=== PATIENT | male | born 2000 | race Caucasian/White ===

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

== ENCOUNTER 2020-08-21 00:14 | Inpatient (IN) | payer BC, OTHER ==
[~2020-08-21] VITALS: Ht 182.9 cm; Wt 70.0 kg
[2020-08-21] MEDS ORDERED: LIDOcaine 1% W/epiNEPHrine 1:100,000 20ml vial SQ ONE (00:35)
[2020-08-21] MEDS ORDERED: fentaNYL/PF 50MCG/1 ML 2ML syringe IV ONE (00:35)
[2020-08-21 00:53] LABS: BASOPHILS % (AUTO) 0.4 % (0-1); EOSINOPHILS # (AUTO) 0.2 X10'3 (0-0.9); EOSINOPHILS % (AUTO) 2.9 % (0-6); HEMATOCRIT 45.2 % (42.0-52.0); HEMOGLOBIN 15.3 g/dl (14.0-17.9); LYMPHOCYTES # (AUTO) 2.7 X10'3 (1.1-4.8); LYMPHOCYTES % (AUTO) 39.1 % (21-51); MEAN CORPUSCULAR HEMOGLOBIN 28.3 PG (27.0-31.0); MEAN CORPUSCULAR HGB CONC 33.8 g/dL (33.0-36.5); MEAN CORPUSCULAR VOLUME 83.7 FL (78-98); MEAN PLATELET VOLUME 8.3 FL (7.4-10.4); MONOCYTES # (AUTO) 0.5 X10'3 (0-0.9); MONOCYTES % (AUTO) 7.8 % (2-12); NEUTROPHILS # (AUTO) 3.5 X10'3 (1.8-7.7); NEUTROPHILS % (AUTO) 49.8 % (42-75); PLATELET COUNT 186 X10'3 (140-440); RED CELL DISTRIBUTION WIDTH 13.3 % (11.5-14.5)
[2020-08-21 01:07] LABS: ALANINE AMINOTRANSFERASE 31 U/L (12-78); ALBUMIN 4.8 G/DL (3.4-5.0); ALBUMIN/GLOBULIN RATIO 1.5 (1.1-1.5); ALKALINE PHOSPHATASE 81 IU/L (20-180); ANION GAP 8 (8-16); ASPARTATE AMINO TRANSFERASE 39 U/L (10-37); BILIRUBIN,TOTAL 2.1 MG/DL (0.1-1.0); BLOOD UREA NITROGEN 10 MG/DL (7-18); BUN/CREATININE RATIO 9.9 (5.4-32.0); CALCIUM 9.2 MG/DL (8.5-10.1); CHLORIDE 105 MMOL/L (99-107); CREATININE 1.01 MG/DL (0.60-1.10); POTASSIUM 3.6 MMOL/L (3.5-5.1); SODIUM 141 MMOL/L (135-145); TOTAL CARBON DIOXIDE 28.4 MMOL/L (24-32); TOTAL PROTEIN 8.1 G/DL (6.4-8.2); eGFR > 90 ML/MIN
[2020-08-21 01:08] LABS: GLUCOSE 124 MG/DL (70-104)
[2020-08-21] MEDS ORDERED: magnesium hydroxide 30ml (MOM) UD suspension PO PRN (02:05)
[2020-08-21] MEDS ORDERED: mag hydrox/Alum hydrox/simeth 30ml oral suspension PO PRN (02:05)
[2020-08-21] MEDS ORDERED: acetaminophen 325mg tablet PO PRN (02:05)
[2020-08-21] MEDS ORDERED: potassium Cl 20 mEq SR tablet PO PRN ×2 (02:05)
[2020-08-21] MEDS ORDERED: ondansetron/PF 4mg/2ml inj IV PRN (02:05)
[2020-08-21] MEDS ORDERED: potassium CL 10mEq/100ml bag 100 ML IV PRN ×2 (02:05)
[2020-08-21] MEDS ORDERED: magnesium 2GM in 50ml NS 50 ML IV PRN (02:05)
[2020-08-21] MEDS ORDERED: magnesium Cl slow-release 64mg tablet PO PRN (02:05)
[2020-08-21] MEDS ORDERED: magnesium 4gm in 100ml NS 100 ML IV PRN (02:05)
--- NOTE | 2020-08-21 02:07 | NUR ---
Pt to be admitted. Awaiting hospitalist.
[2020-08-21] MEDS ORDERED: NO HOME MEDS (02:19)
[2020-08-21] MEDS ORDERED: morphine 4 MG/ML inj SYRINge IV ONE (02:30)
[2020-08-21] MEDS ORDERED: ondansetron/PF 4mg/2ml inj IV ONE (02:30)
[2020-08-21] MEDS: HYDROcodone/acetaminophen 5mg/325mg tablet PO PRN ×2 (02:40→06:57)
--- NOTE | 2020-08-21 03:28 | NUR ---
Patient in room ED 1. I have received report from Demetrice XAVIER and had the opportunity to ask questions and assume patient care.
--- NOTE | 2020-08-21 04:00 | NUR ---
PAGER ID: [phone] MESSAGE: Sunni [phone]- [facility] pt. Edwarhemal Riggs 19 y/o with Pneumo. We have suction set at 20mmHg continuous. No orders for settings provided, please advise. Thank you.
[2020-08-21 04:10] VITALS: BP 133/84
--- NOTE | 2020-08-21 06:41 | NUR ---
Problems reprioritized. Patient report given, questions answered & plan of care reviewed with Yaneli XAVIER.
--- NOTE | 2020-08-21 06:51 | NUR ---
Patient in room [facility]. I have received report from DUC Moeller and had the opportunity to ask questions and assume patient care.
[2020-08-21 07:00] VITALS: BP 124/66
[2020-08-21] MEDS: K and/or MAG REPLACEMENT MC SCH ×2 (08:00→19:21)
[2020-08-21 11:00] VITALS: BP 115/74
[2020-08-21] MEDS ORDERED: ketorolac trometh. 30mg/ml inj. IM PRN (12:25)
[2020-08-21] MEDS: ketorolac trometh. 30mg/ml inj. IV PRN ×2 (13:26→21:31)
--- NOTE | 2020-08-21 15:40 | NUR ---
Pt transported to CT scan and back with primary RN and transportation inspector, via wheelchair. Pt tolerated transportation well.
--- NOTE | 2020-08-21 16:15 | NUR ---
Pt transported to and from xray in ED via wheelchair by Primary RN.
[2020-08-21 18:00] VITALS: BP 118/70
--- NOTE | 2020-08-21 18:18 | NUR ---
Problems reprioritized. Patient report given, questions answered & plan of care reviewed with DUC Carney.
--- NOTE | 2020-08-21 18:57 | NUR ---
Patient in room [facility]. I have received report from ALEC XAVIER and had the opportunity to ask questions and assume patient care.
[2020-08-22 00:16] VITALS: BP 110/70
[2020-08-22 05:03] LABS: BASOPHILS % (AUTO) 0.2 % (0-1); EOSINOPHILS # (AUTO) 0.2 X10'3 (0-0.9); EOSINOPHILS % (AUTO) 3.3 % (0-6); HEMOGLOBIN 14.7 g/dl (14.0-17.9); LYMPHOCYTES # (AUTO) 1.9 X10'3 (1.1-4.8); LYMPHOCYTES % (AUTO) 38.1 % (21-51); MEAN CORPUSCULAR HEMOGLOBIN 28.2 PG (27.0-31.0); MEAN CORPUSCULAR HGB CONC 33.5 g/dL (33.0-36.5); MEAN CORPUSCULAR VOLUME 84.1 FL (78-98); MEAN PLATELET VOLUME 8.1 FL (7.4-10.4); MONOCYTES # (AUTO) 0.5 X10'3 (0-0.9); MONOCYTES % (AUTO) 9.4 % (2-12); NEUTROPHILS # (AUTO) 2.4 X10'3 (1.8-7.7); PLATELET COUNT 143 X10'3 (140-440); RED BLOOD COUNT 5.23 X10'6 (4.70-6.10); RED CELL DISTRIBUTION WIDTH 13.4 % (11.5-14.5); WHITE BLOOD COUNT 4.9 X10'3 (4.5-11.0)
[2020-08-22 05:13] LABS: ALANINE AMINOTRANSFERASE 27 U/L (12-78); ALBUMIN 4.1 G/DL (3.4-5.0); ALBUMIN/GLOBULIN RATIO 1.4 (1.1-1.5); ALKALINE PHOSPHATASE 69 IU/L (20-180); ANION GAP 6 (8-16); ASPARTATE AMINO TRANSFERASE 16 U/L (10-37); BILIRUBIN,TOTAL 2.7 MG/DL (0.1-1.0); BLOOD UREA NITROGEN 12 MG/DL (7-18); BUN/CREATININE RATIO 13.3 (5.4-32.0); CALCIUM 10.1 MG/DL (8.5-10.1); CHLORIDE 107 MMOL/L (99-107); GLUCOSE 95 MG/DL (70-104); MAGNESIUM 2.2 MG/DL (1.5-2.4); POTASSIUM 4.1 MMOL/L (3.5-5.1); SODIUM 142 MMOL/L (135-145); TOTAL CARBON DIOXIDE 28.8 MMOL/L (24-32); TOTAL PROTEIN 7.1 G/DL (6.4-8.2); eGFR > 90 ML/MIN
--- NOTE | 2020-08-22 06:05 | NUR ---
Problems reprioritized. Patient report given, questions answered & plan of care reviewed with HEBERT XAVIER.
[2020-08-22 07:00] VITALS: BP 104/69
[2020-08-22] MEDS: ketorolac trometh. 30mg/ml inj. IV PRN ×2 (07:32→18:55)
[2020-08-22] MEDS: K and/or MAG REPLACEMENT MC SCH ×2 (08:00→18:50)
[2020-08-22 12:00] VITALS: BP 108/67
[2020-08-22 19:00] VITALS: BP 106/64
[2020-08-22 23:30] VITALS: BP 113/75
[2020-08-23] MEDS: HYDROcodone/acetaminophen 5mg/325mg tablet PO PRN (02:29)
[2020-08-23 07:00] VITALS: BP 105/62
[2020-08-23] MEDS: K and/or MAG REPLACEMENT MC SCH ×2 (08:00→21:04)
[2020-08-23] MEDS: ketorolac trometh. 30mg/ml inj. IV PRN ×2 (08:01→19:20)
--- NOTE | 2020-08-23 14:20 | NUR ---
No labs ordered today
--- NOTE | 2020-08-23 18:50 | NUR ---
Patient in room [facility] 340B. I have received report from DUC Negro and had the opportunity to ask questions and assume patient care.
[2020-08-23 20:00] VITALS: BP 119/73
[2020-08-23 23:00] VITALS: BP 118/67
[2020-08-24] VITALS (23 sets, daily range): BP systolic 100–156; BP diastolic 55–83
[2020-08-24] MEDS: normal saline 1000ml 1,000 ML IV SCH ×2 (04:45→16:30)
[2020-08-24] MEDS: ketorolac trometh. 30mg/ml inj. IV PRN (05:24)
--- NOTE | 2020-08-24 06:24 | NUR ---
Problems reprioritized. Patient report given, questions answered & plan of care reviewed with DUC Tee.
--- NOTE | 2020-08-24 06:25 | NUR ---
Patient in room [facility]. I have received report from Katerin XAVIER and had the opportunity to ask questions and assume patient care.
[2020-08-24 09:50] LABS: BASOPHILS % (AUTO) 0.4 % (0-1); EOSINOPHILS # (AUTO) 0.2 X10'3 (0-0.9); EOSINOPHILS % (AUTO) 3.4 % (0-6); HEMATOCRIT 41.8 % (42.0-52.0); LYMPHOCYTES # (AUTO) 1.6 X10'3 (1.1-4.8); MEAN CORPUSCULAR HEMOGLOBIN 28.4 PG (27.0-31.0); MEAN CORPUSCULAR HGB CONC 33.5 g/dL (33.0-36.5); MEAN CORPUSCULAR VOLUME 84.6 FL (78-98); MONOCYTES # (AUTO) 0.5 X10'3 (0-0.9); MONOCYTES % (AUTO) 9.2 % (2-12); NEUTROPHILS # (AUTO) 3.5 X10'3 (1.8-7.7); PLATELET COUNT 151 X10'3 (140-440); RED BLOOD COUNT 4.94 X10'6 (4.70-6.10); RED CELL DISTRIBUTION WIDTH 13.4 % (11.5-14.5); WHITE BLOOD COUNT 5.9 X10'3 (4.5-11.0)
[2020-08-24 09:55] LABS: PARTIAL THROMBOPLASTIN TIME 31 SECONDS (22-32)
[2020-08-24] MEDS ORDERED: famotidine 20mg tablet PO ONE (09:56)
[2020-08-24] MEDS ORDERED: ringers solution, lacted 1,000 ML IV SCH ×2 (09:56→12:45)
[2020-08-24 10:00] LABS: ALANINE AMINOTRANSFERASE 25 U/L (12-78); ALBUMIN 3.6 G/DL (3.4-5.0); ALBUMIN/GLOBULIN RATIO 1.3 (1.1-1.5); ALKALINE PHOSPHATASE 65 IU/L (20-180); ANION GAP 6 (8-16); ASPARTATE AMINO TRANSFERASE 15 U/L (10-37); BILIRUBIN,TOTAL 1.4 MG/DL (0.1-1.0); BLOOD UREA NITROGEN 11 MG/DL (7-18); BUN/CREATININE RATIO 12.9 (5.4-32.0); CALCIUM 8.9 MG/DL (8.5-10.1); CHLORIDE 109 MMOL/L (99-107); CREATININE 0.85 MG/DL (0.60-1.10); GLUCOSE 93 MG/DL (70-104); SODIUM 141 MMOL/L (135-145); TOTAL CARBON DIOXIDE 26.4 MMOL/L (24-32); TOTAL PROTEIN 6.4 G/DL (6.4-8.2); eGFR > 90 ML/MIN
--- NOTE | 2020-08-24 12:27 | NUR ---
Pt taken down to OR via hospital bed, accompanied by staff members. Report phoned to Luca XAVIER in Recovery.
[2020-08-24] MEDS ORDERED: LIDOcaine 1% (10mg/ml) 2ml vial ONE (12:32)
[2020-08-24] MEDS ORDERED: BUPIVAcaine/PF 2.5 mg/ml (0.25%) 30ml vial ONE (12:32)
[2020-08-24] MEDS ORDERED: BUPIVACAINE liposomal/PF 13.3 MG/ML vial IM ONE (12:33)
[2020-08-24] MEDS ORDERED: BUPIVAcaine/PF 2.5mg/ml (0.25%) 10ml vial ONE (12:33)
--- NOTE | 2020-08-24 12:33 | NUR ---
Pt taken down to Surgery approx 1210. Not yet given Pepcid. Phoned Gómez XAVIERrunning rigger and will give down in preop.
[2020-08-24] MEDS ORDERED: ondansetron/PF 4mg/2ml inj ONE (12:44)
[2020-08-24] MEDS ORDERED: dexamethasone sod phosphate 10mg/ml inj ONE (12:44)
[2020-08-24] MEDS ORDERED: sevoflurane 250ml liquid IH ONE (12:44)
[2020-08-24] MEDS ORDERED: acetaminophen 1,000mg/100ml IV 100 ML IV PRN (12:45)
[2020-08-24] MEDS ORDERED: morphine 2 MG/ML inj. syringe IV PRN (12:45)
[2020-08-24] MEDS ORDERED: ondansetron/PF 4mg/2ml inj IV PRN ×2 (12:45→14:45)
[2020-08-24] MEDS ORDERED: hydrALAZINE 20mg/ml inj. IV PRN (12:45)
[2020-08-24] MEDS ORDERED: morphine 4 MG/ML inj SYRINge IV PRN (12:45)
[2020-08-24] MEDS ORDERED: meperidine/PF 25mg/ml syringe IV PRN ×3 (12:45)
[2020-08-24] MEDS ORDERED: labetalol 20mg/4ml (5mg/ml) syringe IV PRN (12:45)
[2020-08-24] MEDS ORDERED: proCHLORperazine 10 MG/2 ml inj IV PRN (12:45)
[2020-08-24] MEDS ORDERED: MIDAZolam 5mg/5ml vial ONE (12:51)
[2020-08-24] MEDS ORDERED: fentaNYL /PF 50mcg/ml 5ml ampule ONE (13:26)
[2020-08-24] MEDS ORDERED: propofol inj 20 ML IV ONE (13:38)
[2020-08-24] MEDS ORDERED: rocuronium 10mg/ml inj IV ONE ×2 (13:38)
[2020-08-24] MEDS ORDERED: LIDOcaine 2% (20mg/ml) 5ml vial ONE (13:38)
[2020-08-24] MEDS ORDERED: ceFAZolin 1000mg inj ONE ×2 (13:38)
[2020-08-24] MEDS ORDERED: 0.9 % SODIUM CHLORIDE 10 ML VIAL ONE (13:40)
[2020-08-24] MEDS ORDERED: ePHEDrine 50MG/ML INJ. ONE (13:41)
[2020-08-24] MEDS ORDERED: sugammadex 200mg/2ml injection IV ONE (14:15)
--- NOTE | 2020-08-24 14:34 | NUR ---
Received from OR via BED, accompanied by Anesthesiologist DR RODRIGUEZ and report given by Anesthesiologist. PT DROWSY, NO S/S OF DISTRESS/DISCOMFORT, RIGHT MID CHEST W/CHEST TUBE TO SUCTION 20MMHG, SCANT AMT OF S/S DRAINAGE IN [facility]. CXR OBTAINED AND REVIEWED BY DR ARCHULETA. Addendum: 08/24/20 at 1518 by Noris Rutledge RN Amended: Links added.
[2020-08-24] MEDS ORDERED: ketorolac trometh. 30mg/ml inj. IV PRN (14:45)
--- NOTE | 2020-08-24 15:56 | NUR ---
Patient in room PACU 1. I have received report from rudi verma rn and had the opportunity to ask questions and assume patient care.
[2020-08-24] MEDS ORDERED: ceFAZolin/D5W- 1GM premix 50 ML IV SCH (16:00)
--- NOTE | 2020-08-24 16:14 | NUR ---
RIGHT RADIAL ARTERIAL LINE D/CD, PRESSURE HELD, HEMOSTASIS ACHIEVED, 4X4 GAUZE W/KERLEX WRAP APPLIED. Report called to receiving nurse. Transferred via BED ON CM AND CT TO PORTABLE SUCTION, NO Belongings, RECEIVING RN AT BEDSIDE TO RECEIVE PT. Special Issues communicated to receiving nurse. YES. Addendum: 08/24/20 at 1636 by Noris Rutledge RN Amended: Links added.
--- NOTE | 2020-08-24 16:15 | NUR ---
received pt into room 308,oriented to surroundings,CT patent to right anterior chest wall,,20 cm suction small air leak ,no crepitus observed, pt denies pain at this time , post op v/s stable,call donohue in hand.
[2020-08-24] MEDS: ceFAZolin/D5W- 1GM premix 50 ML IV SCH ×2 (17:18→23:57)
[2020-08-24] MEDS: HYDROcodone/acetaminophen 5mg/325mg tablet PO PRN (17:42)
--- NOTE | 2020-08-24 18:15 | NUR ---
Problems reprioritized. Patient report given, questions answered & plan of care reviewed with pat aragon.
[2020-08-24] MEDS: K and/or MAG REPLACEMENT MC SCH (20:00)
[2020-08-24] MEDS: HYDROcodone/acetaminophen 10/325mg tab PO PRN (21:36)
[2020-08-25] MEDS ORDERED: diphenhydrAMINE 25mg capsule PO PRN (01:00)
[2020-08-25] MEDS: HYDROcodone/acetaminophen 10/325mg tab PO PRN ×2 (01:41→06:58)
[2020-08-25 02:00] VITALS: BP 121/67
[2020-08-25] MEDS: Melatonin 3mg tablet PO SCH ×2 (02:00→23:24)
[2020-08-25] MEDS: normal saline 1000ml 1,000 ML IV SCH ×3 (03:49→20:30)
[2020-08-25 06:00] VITALS: BP 118/69
--- NOTE | 2020-08-25 06:22 | NUR ---
Patient in room [facility] 308. I have received report from pat aragon and had the opportunity to ask questions and assume patient care.
[2020-08-25] MEDS: K and/or MAG REPLACEMENT MC SCH ×2 (08:00→20:00)
[2020-08-25 10:00] VITALS: BP 98/57
[2020-08-25] MEDS: HYDROcodone/acetaminophen 5mg/325mg tablet PO PRN ×3 (11:52→23:24)
[2020-08-25 14:00] VITALS: BP 102/61
[2020-08-25 18:00] VITALS: BP 103/67
--- NOTE | 2020-08-25 18:45 | NUR ---
Problems reprioritized. Patient report given, questions answered & plan of care reviewed with pat atwood.
--- NOTE | 2020-08-25 18:50 | NUR ---
Patient in room [facility] 308. I have received report from Franca XAVIER and had the opportunity to ask questions and assume patient care.
[2020-08-25 22:30] VITALS: BP 111/64
[2020-08-26] VITALS: BP 111/64
[2020-08-26 03:00] VITALS: BP 112/68
[2020-08-26] MEDS: HYDROcodone/acetaminophen 5mg/325mg tablet PO PRN ×2 (03:26→07:26)
[2020-08-26 06:00] VITALS: BP 112/67
--- NOTE | 2020-08-26 06:28 | NUR ---
Patient in room [facility] 308. I have received report from DUC Bethea and had the opportunity to ask questions and assume patient care.
[2020-08-26] MEDS: normal saline 1000ml 1,000 ML IV SCH (06:30)
--- NOTE | 2020-08-26 06:44 | NUR ---
Problems reprioritized. Patient report given, questions answered & plan of care reviewed with Cristina XAVIER.
[2020-08-26] MEDS: K and/or MAG REPLACEMENT MC SCH (07:15)
[2020-08-26 11:09] VITALS: BP 115/64
--- NOTE | 2020-08-26 11:45 | NUR ---
Initial: patient has a great appetite and eating well, average PO intake 75-100% regular diet. S/p VATS and robotic assisted upper lobe bullectomy 08/24 and has chest tube r/t spontaneous pneumothorax. No nutrition problem. Recommend: 1. continue regular diet 2. bowel care as needed 3. weight per rx Addendum: 08/26/20 at [address] Amended: Links added.
[2020-08-26 14:47] VITALS: BP 102/59
[2020-08-26] MEDS ORDERED: ALBU8.5H8 INH (16:59)
[2020-08-26] MEDS ORDERED: HYDR-4383 PO (16:59)
--- NOTE | 2020-08-26 17:50 | NUR ---
Patient discharged home and taken from unit via wheelchair with x1 staff. Patient alert, oriented and in no apparent distress at time of discharge. PIV removed with cannula intact. Patient discharge instructions were discussed with patient including education on symptoms worsening, follow up information including Dr. Patel's office address and phone number, information on medications and when/how to take them. Patient stated an understanding of these instructions after time for questions and answers. [facility] Patient took all belongings with him except for discharge packet. Patient was called and informed of this and he stated he would come back to get it. Awaiting patient arrival.
== END 2020-08-26 18:00 | disposition home or self-care (01) | DRG 163 ==
LOC: ER 00:15 → ED HOLD 02:02 → SUR 3N 03:45 → OBSVTOIN 10:00 → PACU 08-24 12:15 → MED 3N 08-24 16:20
PROVIDERS: ADMIT Family Medicine; ATTEND Family Medicine
PROC: 0W9930Z Drainage of Right Pleural Cavity with Drainage Device, Percutaneous Approach (ICD-10-PCS; 2020-08-21)
PROC: 8E0W0CZ Robotic Assisted Procedure of Trunk Region, Open Approach (ICD-10-PCS; 2020-08-24)
PROC: 0BBC0ZZ Excision of Right Upper Lung Lobe, Open Approach (ICD-10-PCS; principal; 2020-08-24 12:44)
DX: J43.0 Unilateral pulmonary emphysema [MacLeod's syndrome] (principal); J93.0 Spontaneous tension pneumothorax; Q33.0 Congenital cystic lung; J45.909 Unspecified asthma, uncomplicated; M25.519 Pain in unspecified shoulder; Z20.828 Contact with and (suspected) exposure to other viral communicable diseases
CPT/HCPCS: 32551; 96374; 96375; 99285; Z7506; Z7508; 36415; 71045; 71046; 71250; 80053; 82948; 83735; 85025; 85610; 85730; 86885; 86900; 86901; 87081; 87635; 93005; 94760; A4618; A6258; A6449; A7000; A7048; C9290; C9399; G0378; J0131; J0690; J1100; J1885; J2001; J2175; J2250; J2405; J2704; J3010; J3490; J7030; J7120